=== PATIENT | female | born 1965 | race Caucasian/White ===

== ENCOUNTER → 2020-09-04 | Outpatient (CLI) | payer BC, OTHER | LOC: LAB 11:46 | DX: D89.89 Other specified disorders involving the immune mechanism, not elsewhere classified (principal); R76.8 Other specified abnormal immunological findings in serum; M25.50 Pain in unspecified joint; E55.9 Vitamin D deficiency, unspecified; R53.83 Other fatigue | CPT/HCPCS: 36415; 84439; 84443 ==